=== PATIENT | male | born 1970 | race African-American/Black ===

== ENCOUNTER 2020-07-19 09:20 | Emergency (ER) | payer MEDICARE | END 2020-07-19 10:57 | disposition home or self-care (01) | LOC: CSHERS 09:20 | DX: L29.9 Pruritus, unspecified (principal); L30.8 Other specified dermatitis; E11.9 Type 2 diabetes mellitus without complications; E78.5 Hyperlipidemia, unspecified; E78.00 Pure hypercholesterolemia, unspecified; I12.0 Hypertensive chronic kidney disease with stage 5 chronic kidney disease or end stage renal disease; N18.6 End stage renal disease; Z99.2 Dependence on renal dialysis | CPT/HCPCS: 99282 ==

== ENCOUNTER 2021-01-30 22:19 | Emergency (ER) | payer MEDICARE ==
[2021-01-30 23:35] LABS: #Basophils 0.1 10x3/uL (0.0-0.2); #Eosinphils 0.4 10x3/uL (0.0-0.5); #Monocytes 0.9 10x3/uL (0.0-1.1); #Neutrophils 5.7 10x3/uL (1.5-8.4); %Basophils 1.5 % (0.0-2.0); %Eosinophils 4.7 % (0.0-6.0); %Lymphocytes 13.5 % (18.0-47.0); %Neutrophils 68.9 % (40.0-75.0); Hemoglobin 10.9 g/dL (13.5-17.5); Mean Corpuscular Hemoglobin 30.7 pg (27.0-33.0); Mean Platelet Volume 10.2 fl (7.4-10.4); Platelet Count 223 10x3/uL (150-450); RBC Distribution Width 17.2 % (11.5-14.5); Red Blood Cell (RBC) Count 3.55 10x6/uL (4.32-5.72); White Blood Cell (WBC) Count 8.3 10x3/uL (3.5-10.5)
[2021-01-30 23:54] LABS: ALT (SGPT) 24 U/L (8-55); AST (SGOT) 28 U/L (5-34); Albumin 4.1 g/dL (3.5-5.0); Alkaline Phosphatase 253 U/L (40-110); Anion Gap 23 mmol/L (10-20); BUN (Urea Nitrogen) 90 mg/dL (8.4-25.7); Bilirubin, Total 0.9 mg/dL (0.2-1.2); Calc. Creatinine Clearance 0 mL/min (70-130); Carbon Dioxide 23 mmol/L (22-29); Chloride 98 mmol/L (98-107); Globulin 3.2 g/dL (2.4-3.5); Glucose 168 mg/dL (70-105); Protein, Total 7.3 g/dL (6.0-8.3); Sodium 137 mmol/L (136-145)
[2021-01-30 23:57] LABS: Potassium 6.7 mmol/L (3.5-5.1)
[2021-01-31 14:37] LABS: SARS-CoV-2 PCR by NAA Not Detected (NotDetected)
== END 2021-01-30 23:59 | disposition home or self-care (01) ==
LOC: CSHERS 22:19
DX: I12.0 Hypertensive chronic kidney disease with stage 5 chronic kidney disease or end stage renal disease (principal); N18.6 End stage renal disease; E11.22 Type 2 diabetes mellitus with diabetic chronic kidney disease; Z99.2 Dependence on renal dialysis; Z20.822 Contact with and (suspected) exposure to COVID-19; E78.5 Hyperlipidemia, unspecified; E78.00 Pure hypercholesterolemia, unspecified
CPT/HCPCS: 71045; 80053; 85025; 93005; U0003; U0005; 36415

== ENCOUNTER 2021-02-02 19:29 | Emergency (ER) | payer MEDICARE ==
[2021-02-02] MEDS ORDERED: Lidocaine 1% (PF) 30 ML VIAL ONE (20:20)
== END 2021-02-02 21:08 | disposition home or self-care (01) ==
LOC: CSHERS 19:29
DX: S01.512A Laceration without foreign body of oral cavity, initial encounter (principal); I12.0 Hypertensive chronic kidney disease with stage 5 chronic kidney disease or end stage renal disease; E11.22 Type 2 diabetes mellitus with diabetic chronic kidney disease; N18.6 End stage renal disease; E78.5 Hyperlipidemia, unspecified; E78.00 Pure hypercholesterolemia, unspecified; Y04.1XXA Assault by human bite, initial encounter; Z99.2 Dependence on renal dialysis
CPT/HCPCS: 12011; 99283; J2001

== ENCOUNTER 2021-02-04 10:26 | Emergency (ER) | payer MEDICARE | END 2021-02-04 11:20 | disposition home or self-care (01) | LOC: CSHERS 10:26 | DX: S01.512D Laceration without foreign body of oral cavity, subsequent encounter (principal); E11.22 Type 2 diabetes mellitus with diabetic chronic kidney disease; I12.0 Hypertensive chronic kidney disease with stage 5 chronic kidney disease or end stage renal disease; N18.6 End stage renal disease; E78.5 Hyperlipidemia, unspecified; E78.00 Pure hypercholesterolemia, unspecified; Z99.2 Dependence on renal dialysis; Z79.52 Long term (current) use of systemic steroids; Z79.899 Other long term (current) drug therapy | CPT/HCPCS: 99282 ==

== ENCOUNTER 2021-02-07 21:32 | Emergency (ER) | payer MEDICARE ==
[2021-02-07] MEDS ORDERED: Lidocaine 1% w/Epinephrine 1:100K 20 ML VIAL ONE (22:56)
== END 2021-02-07 23:14 | disposition home or self-care (01) ==
LOC: CSHERS 21:32
DX: S01.512A Laceration without foreign body of oral cavity, initial encounter (principal); X58.XXXA Exposure to other specified factors, initial encounter
CPT/HCPCS: 41250

== ENCOUNTER 2021-03-23 20:23 | Emergency (ER) | payer MEDICARE | END 2021-03-23 21:36 | disposition home or self-care (01) | LOC: CSHERS 20:23 | DX: T82.838A Hemorrhage due to vascular prosthetic devices, implants and grafts, initial encounter (principal) | CPT/HCPCS: 99284 ==

== ENCOUNTER 2021-06-11 12:14 | Emergency (ER) | payer MEDICARE ==
[2021-06-11 13:13] LABS: #Basophils 0.1 10x3/uL (0.0-0.2); #Neutrophils 6.4 10x3/uL (1.5-8.4); %Basophils 0.9 % (0.0-2.0); %Eosinophils 0.2 % (0.0-6.0); %Lymphocytes 11.9 % (18.0-47.0); %Monocytes 11.5 % (0.0-10.0); %Neutrophils 75.3 % (40.0-75.0); Hemoglobin 11.5 g/dL (13.5-17.5); Mean Corpuscular HGB CONC 33.8 g/dL (32.0-36.0); Mean Corpuscular Hemoglobin 30.5 pg (27.0-33.0); Mean Corpuscular Volume 90.2 fl (81.2-95.1); Mean Platelet Volume 10.8 fl (7.4-10.4); Platelet Count 167 10x3/uL (150-450); Red Blood Cell (RBC) Count 3.77 10x6/uL (4.32-5.72); White Blood Cell (WBC) Count 8.5 10x3/uL (3.5-10.5)
[2021-06-11 13:25] LABS: INR-International Normal Ratio 1.2
[2021-06-11 13:29] LABS: ALT (SGPT) 25 U/L (8-55); AST (SGOT) 27 U/L (5-34); Albumin 4.2 g/dL (3.5-5.0); Alkaline Phosphatase 234 U/L (40-110); Anion Gap 28 mmol/L (10-20); BUN (Urea Nitrogen) 103 mg/dL (8.4-25.7); Bilirubin, Total 1.4 mg/dL (0.2-1.2); Calc. Creatinine Clearance 0 mL/min (70-130); Calcium 8.8 mg/dL (7.8-10.44); Carbon Dioxide 18 mmol/L (22-29); Chloride 100 mmol/L (98-107); Globulin 3.7 g/dL (2.4-3.5); Glucose 74 mg/dL (70-105); Protein, Total 7.9 g/dL (6.0-8.3); Sodium 140 mmol/L (136-145)
[2021-06-11] MEDS ORDERED: Sodium Bicarb 50 MEQ/50 ML Abboject 8.4% SYRINGE ONE (13:56)
[2021-06-11] MEDS ORDERED: Calcium Gluc 4.6 MEQ/10 ML (100 MG/ML) ONE (14:07)
[2021-06-11] MEDS ORDERED: Heparin 10,000 UNITS/ 10 ML VIAL SLOW IVP PRN (17:16)
== END 2021-06-11 19:25 | disposition home or self-care (01) ==
LOC: CSHERS 12:14
DX: E87.5 Hyperkalemia (principal); E87.70 Fluid overload, unspecified; Z91.15 Patient's noncompliance with renal dialysis; I12.0 Hypertensive chronic kidney disease with stage 5 chronic kidney disease or end stage renal disease; N18.6 End stage renal disease; Z99.2 Dependence on renal dialysis
CPT/HCPCS: 71045; 80053; 85025; 85610; 93005; J0610; 90935; 96365; 96375; G0257; J1644

== ENCOUNTER 2021-07-22 01:51 | Inpatient (IN) | payer MEDICARE ==
[2021-07-22 02:45] LABS: #Basophils 0.1 10x3/uL (0.0-0.2); #Eosinphils 0.1 10x3/uL (0.0-0.5); #Monocytes 1.4 10x3/uL (0.0-1.1); #Neutrophils 16.3 10x3/uL (1.5-8.4); %Basophils 0.3 % (0.0-2.0); %Eosinophils 0.5 % (0.0-6.0); %Monocytes 7.6 % (0.0-10.0); %Neutrophils 86.4 % (40.0-75.0); Mean Corpuscular HGB CONC 35.4 g/dL (32.0-36.0); Mean Corpuscular Hemoglobin 29.9 pg (27.0-33.0); Mean Corpuscular Volume 84.5 fl (81.2-95.1); Mean Platelet Volume 9.5 fl (7.4-10.4); Platelet Count 266 10x3/uL (150-450); RBC Distribution Width 15.4 % (11.5-14.5); Red Blood Cell (RBC) Count 3.68 10x6/uL (4.32-5.72); White Blood Cell (WBC) Count 18.9 10x3/uL (3.5-10.5)
[2021-07-22 02:58] LABS: ALT (SGPT) 26 U/L (8-55); AST (SGOT) 34 U/L (5-34); Albumin 3.4 g/dL (3.5-5.0); Alkaline Phosphatase 372 U/L (40-110); Anion Gap 27 mmol/L (10-20); BUN (Urea Nitrogen) 105 mg/dL (8.4-25.7); Bilirubin, Total 1.3 mg/dL (0.2-1.2); Calc. Creatinine Clearance 0 mL/min (70-130); Calcium 8.5 mg/dL (7.8-10.44); Carbon Dioxide 23 mmol/L (22-29); Chloride 89 mmol/L (98-107); Globulin 3.1 g/dL (2.4-3.5); Glucose 66 mg/dL (70-105); Potassium 4.7 mmol/L (3.5-5.1); Protein, Total 6.5 g/dL (6.0-8.3); Sodium 134 mmol/L (136-145)
[2021-07-22 03:21] LABS: CKMB 6.3 ng/mL (0-6.6)
[2021-07-22] MEDS ORDERED: Dextrose 10% in Water 1,000 ML IV SCH (05:45)
[2021-07-22 05:57] LABS: SARS-CoV-2 NAA Rapid Test Not Detected (NotDetected)
[2021-07-22 06:01] LABS: Magnesium 2.4 mg/dL (1.6-2.6); Phosphorus 6.2 mg/dL (2.3-4.7)
[2021-07-22] MEDS: Heparin 5,000 UNITS/ML VIAL SC SCH ×3 (08:53→20:30)
[2021-07-22] MEDS ORDERED: Heparin 10,000 UNITS/1 ML VIAL SLOW IVP PRN ×2 (08:53→08:57)
[2021-07-22] MEDS ORDERED: VANCOMYCIN 1.25 GM/250 ML BAG 1.25 GM in Premix Bag 1 BAG IVPB SCH (09:00)
[2021-07-22] MEDS: Calcium Acetate 667 MG CAP PO SCH ×3 (09:27→16:27)
[2021-07-22] MEDS: hydrALAZINE 25 MG TAB PO SCH ×3 (09:28→20:31)
[2021-07-22] MEDS: Dextrose 10% in Water 1,000 ML IV SCH ×2 (10:39→18:45)
[2021-07-22] MEDS ORDERED: Vancomycin HCl 500 MG in Sodium Chloride 0.9% 100 ML IVPB SCH (12:30)
[2021-07-22] MEDS ORDERED: HOLD VANCOMYCIN FOR LEVEL >20 FS SCH (12:30)
[2021-07-22] MEDS ORDERED: Vancomycin HCl 750 MG in Sodium Chloride 0.9% 250 ML 250 ML IVPB SCH (12:30)
[2021-07-22] MEDS ORDERED: Vancomycin HCl 250 MG in Sodium Chloride 0.9% 100 ML IVPB SCH (12:30)
[2021-07-22] MEDS ORDERED: Vancomycin 1 GM in Premix Bag 1 BAG IVPB SCH (12:30)
[2021-07-22] MEDS ORDERED: Norepinephrine 8 MG/0.9% NS 250 ML ONE (13:19)
[2021-07-22] MEDS: hydrALAZINE 20 MG/ML VIAL SLOW IVP PRN (17:46)
[2021-07-22] MEDS: Atorvastatin Calcium 40 MG TAB PO SCH (20:30)
[2021-07-22] MEDS ORDERED: Loperamide HCl 2 MG CAP PO SCH (21:15)
[2021-07-23 03:31] LABS: #Basophils 0.1 10x3/uL (0.0-0.2); #Eosinphils 0.3 10x3/uL (0.0-0.5); #Monocytes 1.8 10x3/uL (0.0-1.1); #Neutrophils 11.3 10x3/uL (1.5-8.4); %Basophils 0.8 % (0.0-2.0); %Eosinophils 2.1 % (0.0-6.0); %Lymphocytes 5.8 % (18.0-47.0); %Monocytes 12.1 % (0.0-10.0); %Neutrophils 77.1 % (40.0-75.0); Hemoglobin 10.2 g/dL (13.5-17.5); Mean Corpuscular HGB CONC 34.2 g/dL (32.0-36.0); Mean Corpuscular Hemoglobin 29.3 pg (27.0-33.0); Mean Corpuscular Volume 85.6 fl (81.2-95.1); Mean Platelet Volume 9.3 fl (7.4-10.4); Platelet Count 270 10x3/uL (150-450); RBC Distribution Width 15.4 % (11.5-14.5); Red Blood Cell (RBC) Count 3.48 10x6/uL (4.32-5.72); White Blood Cell (WBC) Count 14.6 10x3/uL (3.5-10.5)
[2021-07-23 03:46] LABS: Anion Gap 17 mmol/L (10-20); BUN (Urea Nitrogen) 46 mg/dL (8.4-25.7); Calc. Creatinine Clearance 12 mL/min (70-130); Calcium 8.7 mg/dL (7.8-10.44); Carbon Dioxide 25 mmol/L (22-29); Chloride 92 mmol/L (98-107); Potassium 4.2 mmol/L (3.5-5.1); Sodium 130 mmol/L (136-145)
[2021-07-23 04:03] LABS: Glucose 55 mg/dL (70-105)
[2021-07-23] MEDS ORDERED: Dextrose 10% in Water 250 ML IVPB SCH (04:30)
[2021-07-23] MEDS: Dextrose 10% in Water 1,000 ML IV SCH ×2 (05:46→15:51)
[2021-07-23] MEDS ORDERED: Vancomycin HCl 750 MG in Sodium Chloride 0.9% 250 ML 250 ML IVPB SCH (08:00)
[2021-07-23] MEDS ORDERED: Dextrose 50% Abboject 50 ML SYRINGE SLOW IVP PRN (08:45)
[2021-07-23] MEDS ORDERED: Dextrose 5% in Water 1,000 ML IV PRN (08:45)
[2021-07-23] MEDS: hydrALAZINE 25 MG TAB PO SCH ×3 (09:11→20:29)
[2021-07-23] MEDS: Calcium Acetate 667 MG CAP PO SCH ×3 (09:12→17:07)
[2021-07-23] MEDS: Heparin 5,000 UNITS/ML VIAL SC SCH ×3 (09:12→20:30)
[2021-07-23] MEDS ORDERED: EPOETIN ALFA-EPBX (ESRD) 4,000 UNIT/ML VIAL SC SCH (09:30)
[2021-07-23] MEDS: Vancomycin 25 MG/ML Oral SOLN PO SCH ×2 (17:07→23:56)
[2021-07-23] MEDS: Atorvastatin Calcium 40 MG TAB PO SCH (20:29)
[2021-07-23] MEDS ORDERED: HumaLOG 300 UNITS/3 ML VIAL SC SCH (22:45)
[2021-07-24] MEDS: Dextrose 10% in Water 1,000 ML IV SCH (02:35)
[2021-07-24 03:30] LABS: Phosphorus 4.2 mg/dL (2.3-4.7)
[2021-07-24] MEDS: Vancomycin 25 MG/ML Oral SOLN PO SCH ×4 (05:12→23:26)
[2021-07-24 05:42] VITALS: BMI 30.3
[2021-07-24] MEDS ORDERED: Dextrose 10% in Water 1,000 ML IV SCH (09:08)
[2021-07-24] MEDS: Heparin 5,000 UNITS/ML VIAL SC SCH ×3 (10:03→20:10)
[2021-07-24] MEDS: hydrALAZINE 25 MG TAB PO SCH ×3 (10:03→20:10)
[2021-07-24] MEDS: Calcium Acetate 667 MG CAP PO SCH ×3 (10:03→17:07)
[2021-07-24] MEDS: Insulin Regular 300 UNITS/3 ML VIAL SC PRN ×2 (17:07→20:19)
[2021-07-24] MEDS: Atorvastatin Calcium 40 MG TAB PO SCH (20:10)
[2021-07-25 05:23] LABS: #Basophils 0.2 10x3/uL (0.0-0.2); #Eosinphils 0.2 10x3/uL (0.0-0.5); #Monocytes 1.7 10x3/uL (0.0-1.1); #Neutrophils 13.4 10x3/uL (1.5-8.4); %Basophils 0.9 % (0.0-2.0); %Eosinophils 1.2 % (0.0-6.0); %Lymphocytes 5.5 % (18.0-47.0); %Monocytes 9.9 % (0.0-10.0); %Neutrophils 79.4 % (40.0-75.0); Hemoglobin 11.9 g/dL (13.5-17.5); Mean Corpuscular HGB CONC 34.1 g/dL (32.0-36.0); Mean Corpuscular Hemoglobin 29.3 pg (27.0-33.0); Mean Platelet Volume 9.8 fl (7.4-10.4); Platelet Count 313 10x3/uL (150-450); Red Blood Cell (RBC) Count 4.06 10x6/uL (4.32-5.72); Vancomycin, Random 15.3 ug/mL (See Comment); White Blood Cell (WBC) Count 16.9 10x3/uL (3.5-10.5)
[2021-07-25 05:42] LABS: Anion Gap 26 mmol/L (10-20); BUN (Urea Nitrogen) 75 mg/dL (8.4-25.7); Calc. Creatinine Clearance 10 mL/min (70-130); Calcium 9.9 mg/dL (7.8-10.44); Carbon Dioxide 20 mmol/L (22-29); Chloride 90 mmol/L (98-107); Sodium 131 mmol/L (136-145)
[2021-07-25 05:50] LABS: Glucose 53 mg/dL (70-105)
[2021-07-25] MEDS: hydrALAZINE 20 MG/ML VIAL SLOW IVP PRN (06:14)
[2021-07-25] MEDS: Vancomycin 25 MG/ML Oral SOLN PO SCH ×3 (06:14→17:36)
[2021-07-25] MEDS ORDERED: Vancomycin HCl 250 MG in Sodium Chloride 0.9% 100 ML IVPB SCH (07:45)
[2021-07-25] MEDS ORDERED: Calcitriol 0.25 MCG CAP PO SCH (09:00)
[2021-07-25] MEDS: Calcium Acetate 667 MG CAP PO SCH ×3 (13:58→17:37)
[2021-07-25] MEDS: Heparin 5,000 UNITS/ML VIAL SC SCH ×2 (13:59→17:36)
[2021-07-25] MEDS: hydrALAZINE 25 MG TAB PO SCH ×2 (13:59)
[2021-07-25 19:40] VITALS: BP 155/85; TEMP 98.6
== END 2021-07-25 18:30 | disposition left against medical advice (07) | DRG 871 ==
LOC: CSHERS 01:51 → INTOOBSV 05:37 → CSHIMCU 05:37 → UNDOADMIN 07:08 → CSHIMCU 07:08 → OBSVTOIN 07-23 08:49 → CSHTELE 07-25 01:02
PROVIDERS: ADMIT Family Medicine; ATTEND Family Medicine
PROC: 5A1D70Z Performance of Urinary Filtration, Intermittent, Less than 6 Hours Per Day (ICD-10-PCS; principal; 2021-07-23)
PROC: 3E03329 Introduction of Other Anti-infective into Peripheral Vein, Percutaneous Approach (ICD-10-PCS; 2021-07-23)
DX: A41.1 Sepsis due to other specified staphylococcus (principal); E11.641 Type 2 diabetes mellitus with hypoglycemia with coma; N18.6 End stage renal disease; A04.72 Enterocolitis due to Clostridium difficile, not specified as recurrent; I12.0 Hypertensive chronic kidney disease with stage 5 chronic kidney disease or end stage renal disease; N25.81 Secondary hyperparathyroidism of renal origin; E11.65 Type 2 diabetes mellitus with hyperglycemia; E11.22 Type 2 diabetes mellitus with diabetic chronic kidney disease; L29.9 Pruritus, unspecified; D63.1 Anemia in chronic kidney disease; Z20.822 Contact with and (suspected) exposure to COVID-19; Z53.21 Procedure and treatment not carried out due to patient leaving prior to being seen by health care provider; Z79.899 Other long term (current) drug therapy; Z79.84 Long term (current) use of oral hypoglycemic drugs; Z88.8 Allergy status to other drugs, medicaments and biological substances; Z99.2 Dependence on renal dialysis; Z98.890 Other specified postprocedural states; Z82.49 Family history of ischemic heart disease and other diseases of the circulatory system; Z84.89 Family history of other specified conditions; Z83.3 Family history of diabetes mellitus; Z79.82 Long term (current) use of aspirin
CPT/HCPCS: 36415; 36416; 71045; 80048; 80053; 80202; 82533; 82553; 83605; 83630; 83735; 83970; 84100; 84484; 85025; 87040; 87077; 87149; 87186; 87324; 87449; 87493; 90935; 93005; 96372; 96374; 96375; 96376; G0257; G0378; J0360; J1644; J1815; J3370; J3490; J7050; Q5105; U0002

== ENCOUNTER 2021-09-05 16:54 | Emergency (ER) | payer MEDICARE | END 2021-09-05 17:59 | disposition home or self-care (01) | LOC: CSHERS 16:54 | DX: T82.838A Hemorrhage due to vascular prosthetic devices, implants and grafts, initial encounter (principal); E11.22 Type 2 diabetes mellitus with diabetic chronic kidney disease; I12.0 Hypertensive chronic kidney disease with stage 5 chronic kidney disease or end stage renal disease; N18.6 End stage renal disease | CPT/HCPCS: 99284 ==

== ENCOUNTER 2021-09-12 02:28 | Inpatient (IN) | payer MEDICARE ==
[2021-09-12] MEDS ORDERED: Dextrose 50% Abboject 50 ML SYRINGE ONE ×2 (02:41→03:52)
[2021-09-12 02:56] LABS: #Basophils 0.1 10x3/uL (0.0-0.2); #Monocytes 2.6 10x3/uL (0.0-1.1); #Neutrophils 14.2 10x3/uL (1.5-8.4); %Basophils 0.4 % (0.0-2.0); %Lymphocytes 4.9 % (18.0-47.0); %Monocytes 14.4 % (0.0-10.0); %Neutrophils 79.6 % (40.0-75.0); Hemoglobin 12.3 g/dL (13.5-17.5); Mean Corpuscular HGB CONC 31.6 g/dL (32.0-36.0); Mean Corpuscular Volume 94.9 fl (81.2-95.1); Platelet Count 273 10x3/uL (150-450); RBC Distribution Width 19.4 % (11.5-14.5); White Blood Cell (WBC) Count 17.8 10x3/uL (3.5-10.5)
[2021-09-12] MEDS ORDERED: hydrALAZINE 20 MG/ML VIAL ONE (03:01)
[2021-09-12 03:09] LABS: ALT (SGPT) 390 U/L (8-55); AST (SGOT) 719 U/L (5-34); Albumin 4.5 g/dL (3.5-5.0); Alkaline Phosphatase 311 U/L (40-110); Anion Gap 42 mmol/L (10-20); BUN (Urea Nitrogen) 105 mg/dL (8.4-25.7); Bilirubin, Total 3.6 mg/dL (0.2-1.2); Calc. Creatinine Clearance 0 mL/min (70-130); Calcium 10.2 mg/dL (7.8-10.44); Carbon Dioxide 10 mmol/L (22-29); Chloride 96 mmol/L (98-107); Glucose 131 mg/dL (70-105); Magnesium 2.9 mg/dL (1.6-2.6); Protein, Total 8.5 g/dL (6.0-8.3); Sodium 140 mmol/L (136-145)
[2021-09-12] MEDS ORDERED: Calcium Gluc 4.6 MEQ/10 ML (100 MG/ML) ONE (03:19)
[2021-09-12 03:35] LABS: Potassium 7.3 mmol/L (3.5-5.1)
[2021-09-12] MEDS ORDERED: Sodium Bicarb 50 MEQ/50 ML VIAL ONE (03:52)
[2021-09-12] MEDS ORDERED: Insulin Regular 300 UNITS/3 ML VIAL ONE (03:52)
[2021-09-12] MEDS ORDERED: Metoclopramide HCl 10 MG/2 ML VIAL ONE (04:34)
[2021-09-12] MEDS ORDERED: Dextrose 5% in Water 1,000 ML IV PRN (05:23)
[2021-09-12] MEDS ORDERED: Ondansetron PF 4 MG/2 ML Vial IVP PRN (05:23)
[2021-09-12] MEDS ORDERED: Dextrose 50% Abboject 50 ML SYRINGE SLOW IVP PRN (05:23)
[2021-09-12] MEDS ORDERED: Acetaminophen 325 MG TAB PO PRN (05:23)
[2021-09-12] MEDS ORDERED: Calcium Carbonate 500 MG ChewTAB PO PRN (05:23)
[2021-09-12] MEDS ORDERED: hydrALAZINE 20 MG/ML VIAL SLOW IVP PRN (05:26)
[2021-09-12] MEDS ORDERED: Nitroglycerin 2% Ointment 1 INCH/1 GM Packet TOP SCH (05:30)
[2021-09-12] MEDS ORDERED: cefTRIAXone\\ROCEPHIN 1 GM in Sodium Chloride 0.9% 100 ML IVPB SCH ×2 (05:30→05:45)
[2021-09-12 05:38] LABS: SARS-CoV-2 NAA Rapid Test Not Detected (NotDetected)
[2021-09-12] MEDS ORDERED: Heparin 10,000 UNITS/ 10 ML VIAL FS PRN (06:12)
[2021-09-12 06:19] LABS: Actual Bicarbonate (HCO3v) 13 mEq/L (22-28); Base Excess -13.1 mEq/L (-2.0 to +3.0); Calcium, Ionized (venous) 1.06 mmol/L (1.16-1.32); Chloride (VBG) 97 mmol/L (98-106); Hemoglobin (Hb) 12.5 g/dL (13.1-17.2); Potassium (VBG) 5.87 mmol/L (3.70-5.30); Puncture Site Other Site; RapidComm Collect By CBL; Sodium 139.8 mmol/L (133-146); pH (venous) 7.25 (7.32-7.43)
[2021-09-12 06:43] LABS: Acetaminophen Less than 10.0 mcg/mL (10.0-30.0); CK (CPK) 347 U/L (30-200)
[2021-09-12 06:48] VITALS: TEMP 97.9
[2021-09-12 07:10] LABS: CKMB 37.5 ng/mL (0-6.6)
[2021-09-12 07:56] VITALS: BMI 31.3
[2021-09-12] MEDS: Multivitamin W/ Minerals 1 TAB PO SCH (08:00)
[2021-09-12] MEDS: Calcium Acetate 667 MG CAP PO SCH ×3 (08:00→21:26)
[2021-09-12] MEDS: hydrALAZINE 25 MG TAB PO SCH ×3 (08:45→21:27)
[2021-09-12] MEDS: Heparin 5,000 UNITS/ML VIAL SC SCH ×3 (08:47→21:27)
[2021-09-12] MEDS: NIFEdipine XL 30 MG TAB PO SCH (09:25)
[2021-09-12 10:23] LABS: PTT 39.8 sec (22.0-33.0)
[2021-09-12 10:38] LABS: ALT (SGPT) 1163 U/L (8-55); AST (SGOT) 2408 U/L (5-34); Albumin 4.2 g/dL (3.5-5.0); Alkaline Phosphatase 314 U/L (40-110); Anion Gap 26 mmol/L (10-20); BUN (Urea Nitrogen) 43 mg/dL (8.4-25.7); Bilirubin, Total 2.7 mg/dL (0.2-1.2); Calc. Creatinine Clearance 16 mL/min (70-130); Calcium 8.9 mg/dL (7.8-10.44); Carbon Dioxide 22 mmol/L (22-29); Chloride 96 mmol/L (98-107); Globulin 3.7 g/dL (2.4-3.5); Glucose 96 mg/dL (70-105); Potassium 3.8 mmol/L (3.5-5.1); Protein, Total 7.9 g/dL (6.0-8.3); Sodium 140 mmol/L (136-145)
[2021-09-12 10:57] LABS: CKMB 34.7 ng/mL (0-6.6)
[2021-09-12 11:37] LABS: Hemoglobin A1c 5.4 % (4.0-6.0)
[2021-09-12 11:57] LABS: HBCM Index 0.07 S/CO (0-0.79); HBSAg Index 0.19 S/CO (0-0.99); Hep A IgM AB Non-Reactive (NonReactive); Hep A IgM S/CO 0.18 S/CO (0-0.79); Hep B Surf Ag Non-Reactive S/CO (NonReactive); Hep C IgG Ab Non-Reactive (NonReactive); Hepatitis B Core IgM Abs Non-Reactive (NonReactive)
[2021-09-12] MEDS ORDERED: Piperacillin/Tazobactam 3.375 GM in Sodium Chloride 0.9% 100 ML IVPB SCH ×2 (16:45→17:00)
[2021-09-12 19:37] LABS: Iron 126 ug/dL (65-175); Iron Binding Capacity, Total 204 mcg/dL (261-462)
[2021-09-12] MEDS: Piperacillin/Tazobactam 3.375 GM in Sodium Chloride 0.9% 100 ML IVPB SCH (21:26)
[2021-09-12 21:29] VITALS: BP 113/62
[2021-09-13 04:36] LABS: #Basophils 0.1 10x3/uL (0.0-0.2); #Eosinphils 0.1 10x3/uL (0.0-0.5); #Monocytes 1.4 10x3/uL (0.0-1.1); #Neutrophils 8.4 10x3/uL (1.5-8.4); %Basophils 0.6 % (0.0-2.0); %Eosinophils 0.6 % (0.0-6.0); %Lymphocytes 7.6 % (18.0-47.0); %Monocytes 12.7 % (0.0-10.0); %Neutrophils 78.1 % (40.0-75.0); Hemoglobin 11.2 g/dL (13.5-17.5); Mean Corpuscular HGB CONC 34.1 g/dL (32.0-36.0); Mean Corpuscular Hemoglobin 30.7 pg (27.0-33.0); Mean Corpuscular Volume 89.9 fl (81.2-95.1); Mean Platelet Volume 10.1 fl (7.4-10.4); Platelet Count 279 10x3/uL (150-450); RBC Distribution Width 18.8 % (11.5-14.5); Red Blood Cell (RBC) Count 3.65 10x6/uL (4.32-5.72); White Blood Cell (WBC) Count 10.8 10x3/uL (3.5-10.5)
[2021-09-13 04:38] LABS: INR-International Normal Ratio 1.8; Prothrombin Time 19.3 sec (9.5-12.1)
[2021-09-13 04:42] LABS: ALT (SGPT) 737 U/L (8-55); AST (SGOT) 736 U/L (5-34); Albumin 3.3 g/dL (3.5-5.0); Alkaline Phosphatase 242 U/L (40-110); Anion Gap 21 mmol/L (10-20); BUN (Urea Nitrogen) 48 mg/dL (8.4-25.7); Bilirubin, Total 1.9 mg/dL (0.2-1.2); Calc. Creatinine Clearance 13 mL/min (70-130); Calcium 8.5 mg/dL (7.8-10.44); Carbon Dioxide 26 mmol/L (22-29); Cardiac Risk 4.1 (Less than 4.5); Chloride 97 mmol/L (98-107); Cholesterol 110 mg/dl (< 200 Desired); Globulin 3.1 g/dL (2.4-3.5); Glucose 180 mg/dL (70-105); HDL Cholesterol 27 mg/dL (>60 Neg Risk); LDL Cholesterol, Calculated 72 mg/dL; Magnesium 2.3 mg/dL (1.6-2.6); Protein, Total 6.4 g/dL (6.0-8.3); Sodium 140 mmol/L (136-145); Triglycerides 57 mg/dL (Less than 150)
[2021-09-13] MEDS: Piperacillin/Tazobactam 3.375 GM in Sodium Chloride 0.9% 100 ML IVPB SCH (08:24)
[2021-09-13] MEDS: Multivitamin W/ Minerals 1 TAB PO SCH (08:24)
[2021-09-13] MEDS: Calcium Acetate 667 MG CAP PO SCH (08:24)
[2021-09-13] MEDS: NIFEdipine XL 30 MG TAB PO SCH (08:24)
[2021-09-13] MEDS: Heparin 5,000 UNITS/ML VIAL SC SCH (08:24)
[2021-09-13] MEDS: hydrALAZINE 25 MG TAB PO SCH (08:24)
[2021-09-13] MEDS ORDERED: Carvedilol 6.25 MG TAB PO SCH (17:00)
[2021-09-13] MEDS ORDERED: hydrALAZINE 25 MG TAB PO SCH (21:00)
[2021-09-13] MEDS ORDERED: Isosorbide Dinitrate 20 MG TAB PO SCH (21:00)
[2021-09-14 12:36] LABS: EliA Vaculitis New Method **** NEW METHOD ****; Mitochondrial Ab Less than 0.5 U/mL (<4 Negative)
[2021-09-14 16:36] LABS: Alpha-1-Antitrypsin 181 mg/dL (101-187)
== END 2021-09-13 16:14 | disposition left against medical advice (07) | DRG 291 ==
LOC: CSHERS 02:28 → CSHIMCU 06:08
PROVIDERS: ADMIT Student in an Organized Health Care Education/Training Program; ATTEND Family Medicine
PROC: 5A1D70Z Performance of Urinary Filtration, Intermittent, Less than 6 Hours Per Day (ICD-10-PCS; principal; 2021-09-12)
DX: I13.2 Hypertensive heart and chronic kidney disease with heart failure and with stage 5 chronic kidney disease, or end stage renal disease (principal); J96.01 Acute respiratory failure with hypoxia; N18.6 End stage renal disease; I50.21 Acute systolic (congestive) heart failure; E87.2 Acidosis; R78.81 Bacteremia; I42.9 Cardiomyopathy, unspecified; E87.5 Hyperkalemia; E11.649 Type 2 diabetes mellitus with hypoglycemia without coma; D72.829 Elevated white blood cell count, unspecified; R79.89 Other specified abnormal findings of blood chemistry; E11.22 Type 2 diabetes mellitus with diabetic chronic kidney disease; B95.7 Other staphylococcus as the cause of diseases classified elsewhere; E78.5 Hyperlipidemia, unspecified; D63.1 Anemia in chronic kidney disease; K76.9 Liver disease, unspecified; I16.0 Hypertensive urgency; Z20.822 Contact with and (suspected) exposure to COVID-19; Z53.21 Procedure and treatment not carried out due to patient leaving prior to being seen by health care provider; Z88.8 Allergy status to other drugs, medicaments and biological substances; Z99.2 Dependence on renal dialysis; Z79.899 Other long term (current) drug therapy; Z79.84 Long term (current) use of oral hypoglycemic drugs; Z98.890 Other specified postprocedural states; Z82.49 Family history of ischemic heart disease and other diseases of the circulatory system; Z84.89 Family history of other specified conditions; Z91.15 Patient's noncompliance with renal dialysis
CPT/HCPCS: 36415; 36416; 71045; 76705; 80053; 80061; 80074; 80143; 82103; 82550; 82553; 82728; 82805; 83036; 83516; 83540; 83550; 83605; 83615; 83690; 83735; 83880; 84443; 84484; 85025; 85610; 85730; 86015; 87040; 90935; 93005; 93010; 93306; 94760; 96374; 96375; 96376; 80307; G0257; J0360; J0610; J0696; J1644; J1815; J2543; J2765; J3490; J7999; U0002

== ENCOUNTER 2021-12-14 23:10 | Observation (INO) | payer MEDICARE ==
[2021-12-14] MEDS ORDERED: Dextrose 50% Abboject 50 ML SYRINGE ONE (23:30)
[2021-12-14 23:55] LABS: #Basophils 0.1 10x3/uL (0.0-0.2); #Eosinphils 0.4 10x3/uL (0.0-0.5); #Monocytes 0.8 10x3/uL (0.0-1.1); #Neutrophils 4.1 10x3/uL (1.5-8.4); %Basophils 1.6 % (0.0-2.0); %Eosinophils 6.8 % (0.0-6.0); %Lymphocytes 12.6 % (18.0-47.0); %Neutrophils 65.8 % (40.0-75.0); Hemoglobin 11.7 g/dL (13.5-17.5); Mean Corpuscular HGB CONC 33.6 g/dL (32.0-36.0); Mean Corpuscular Hemoglobin 29.7 pg (27.0-33.0); Mean Corpuscular Volume 88.3 fl (81.2-95.1); Mean Platelet Volume 9.9 fl (7.4-10.4); Platelet Count 196 10x3/uL (150-450); Red Blood Cell (RBC) Count 3.94 10x6/uL (4.32-5.72); White Blood Cell (WBC) Count 6.3 10x3/uL (3.5-10.5)
[2021-12-15 00:06] LABS: Anion Gap 21 mmol/L (10-20); BUN (Urea Nitrogen) 54 mg/dL (8.4-25.7); Calc. Creatinine Clearance 0 mL/min (70-130); Carbon Dioxide 29 mmol/L (22-29); Chloride 96 mmol/L (98-107); Potassium 4.4 mmol/L (3.5-5.1); Sodium 142 mmol/L (136-145)
[2021-12-15 00:07] LABS: ALT (SGPT) 17 U/L (8-55); AST (SGOT) 23 U/L (5-34); Albumin 3.8 g/dL (3.5-5.0); Alkaline Phosphatase 173 U/L (40-110); Bilirubin, Total 1.1 mg/dL (0.2-1.2); Estimated GFR 7; Globulin 3.5 g/dL (2.4-3.5); Glucose 79 mg/dL (70-105); Protein, Total 7.3 g/dL (6.0-8.3)
[2021-12-15] MEDS ORDERED: Dextrose 10% in Water 250 ML IV SCH (01:15)
[2021-12-15] MEDS ORDERED: Ondansetron PF 4 MG/2 ML Vial IVP PRN (01:48)
[2021-12-15] MEDS ORDERED: Dextrose 50% Abboject 50 ML SYRINGE ONE (01:53)
[2021-12-15] MEDS ORDERED: Octreotide Acetate 50 MCG/ML AMP ONE (01:54)
[2021-12-15] MEDS ORDERED: Dextrose 10% in Water 1,000 ML IV SCH (02:00)
[2021-12-15] MEDS ORDERED: Dextrose 50% Abboject 50 ML SYRINGE SLOW IVP SCH (03:00)
[2021-12-15 05:15] VITALS: BMI 28.5
[2021-12-15 06:27] LABS: Anion Gap 18 mmol/L (10-20); BUN (Urea Nitrogen) 55 mg/dL (8.4-25.7); Calc. Creatinine Clearance 12 mL/min (70-130); Calcium 8.6 mg/dL (7.8-10.44); Carbon Dioxide 29 mmol/L (22-29); Chloride 99 mmol/L (98-107); Estimated GFR 7; Glucose 131 mg/dL (70-105); Magnesium 2.1 mg/dL (1.6-2.6); Phosphorus 5.5 mg/dL (2.3-4.7); Sodium 141 mmol/L (136-145)
[2021-12-15] MEDS ORDERED: hydrALAZINE 25 MG TAB PO SCH (09:00)
[2021-12-15] MEDS ORDERED: Aspirin Chewable 81 MG TAB PO SCH (09:00)
[2021-12-15] MEDS ORDERED: Gabapentin 300 MG CAP PO SCH (09:00)
[2021-12-15] MEDS ORDERED: Folic Acid/Vit B Comp W-C PO SCH (09:00)
[2021-12-15] MEDS ORDERED: Apixaban 5 MG TAB PO SCH (09:00)
[2021-12-15] MEDS: Calcium Acetate 667 MG CAP PO SCH ×2 (09:06→16:07)
[2021-12-15] MEDS ORDERED: Heparin 10,000 UNITS/ 10 ML VIAL SLOW IVP PRN (10:37)
[2021-12-15 16:21] VITALS: BP 164/79; TEMP 97.8
[2021-12-15] MEDS ORDERED: Atorvastatin Calcium 40 MG TAB PO SCH (21:00)
== END 2021-12-15 16:37 | disposition home or self-care (01) ==
LOC: CSHERS 23:10 → INTOOBSV 12-15 02:27 → CSHICU 12-15 02:27 → CSHTELE 12-15 08:53
PROVIDERS: ADMIT Family Medicine; ATTEND Family Medicine
DX: E11.649 Type 2 diabetes mellitus with hypoglycemia without coma (principal); I13.2 Hypertensive heart and chronic kidney disease with heart failure and with stage 5 chronic kidney disease, or end stage renal disease; I50.22 Chronic systolic (congestive) heart failure; E11.22 Type 2 diabetes mellitus with diabetic chronic kidney disease; N18.6 End stage renal disease; D63.1 Anemia in chronic kidney disease; Z99.2 Dependence on renal dialysis; E83.39 Other disorders of phosphorus metabolism; G92.8 Other toxic encephalopathy; I42.8 Other cardiomyopathies; Z79.01 Long term (current) use of anticoagulants; Z79.899 Other long term (current) drug therapy; Z79.82 Long term (current) use of aspirin; Z88.8 Allergy status to other drugs, medicaments and biological substances
CPT/HCPCS: 80048; 80053; 82962; 83036; 83735; 84100; 84443; 85025; 93005; 96374; 96375; 96376 ×2; 99285; G0378 ×2; J2354; 36416; 90935; G0257; J1644; J7999